=== PATIENT | male | born 1960 | race Caucasian/White ===

== ENCOUNTER 2022-03-08 20:15 | Emergency (ER) | payer OTHER, SELFPAY ==
[2022-03-08 20:42] VITALS: BP 135/78; PULSE 55; RESP 16; TEMP 36.4; O2SAT 99; BMI 25.8
--- NOTE | 2022-03-08 21:06 | CRLHL7_ITS ---
For Patients: As a result of the Cures Act, medical imaging exams and procedure reports are released immediately into your electronic medical record. You may view this report before your referring provider. If you have questions, please contact your health care provider. INDICATION: Fall. COMPARISON: None. TECHNIQUE: PA chest and right ribs, 3 images. FINDINGS: No focal consolidation, pleural effusion, or pneumothorax. Normal heart size and pulmonary vascularity. No displaced rib fracture identified. IMPRESSION: 1. No acute cardiopulmonary findings. 2. No displaced rib fracture identified. Dictated by Sarika Krishna MD @ 03/08/2022 11:39:15 PM (Electronically Signed)
--- NOTE | 2022-03-08 21:08 | ED_ITS ---
HPI - General Adult General Chief complaint: Rib Pain Stated complaint: fall, rib pain Time Seen by Provider: 03/08/22 20:56 History of Present Illness HPI narrative: This 61-year-old male comes in with an injury to his right ribs that occurred about 5 hours prior to arrival. He states that he fell onto his right elbow as it hit into the side of his ribs. He fell from a standing height or less and [place] so it was a soft landing. He has some discomfort in his right ribs but does not regarded as severe discomfort. He states that he heard a crack distinctly when he landed. He does not report any shortness of breath. Related Data Home Medications Medication Instructions Recorded Confirmed chlorthalidone 25 mg tablet 25 mg PO DAILY 03/08/22 03/08/22 lisinopril 40 mg tablet 40 mg PO DAILY 03/08/22 03/08/22 metoprolol succinate 25 mg 25 mg PO DAILY 03/08/22 03/08/22 tablet,extended release 24 hr potassium chloride 10 mEq 10 meq PO DAILY 03/08/22 03/08/22 tablet,extended release Previous Rx's Medication Instructions Recorded ketorolac 10 mg tablet 10 mg PO TID 5 Days #15 tab 03/08/22 Allergies Allergy/AdvReac Type Severity Reaction Status Date / Time No Known Drug Allergies Allergy Verified 03/08/22 20:44 Review of Systems Status of ROS: Reports: 10 or more systems reviewed and unremarkable except as noted in History and below Narrative: Constitutional: No fevers, no weight gain or loss. Eyes: No discharge. No vision changes. HENT: No congestion, no sore throat, no ear pain. Cardiovascular: No palpitations. Respiratory: No shortness of breath, no wheezes, no cough. Pain in the lateral right ribs. Gastrointestinal: No abdominal pain, no vomiting, no diarrhea. Genitourinary: No dysuria, no hematuria. Musculoskeletal: Normal range of motion. Skin: No rashes, no pruritis. Neurological: No dizziness, weakness, sensory change, speech change. Endo/Heme/Allergies: No bruising or bleeding. No polydipsia. Pysch: no suicidality, no anxiety, no insomnia. All other systems reviewed and are negative. Exam Narrative: Exam Narrative: Constitutional: Well-developed, well-nourished, no acute distress. HEENT: Normocephalic, atraumatic. Neck: Normal range of motion. Nontender. Supple. Heart: Regular. No murmurs. Normal rate. Intact distal pulses. Lungs: Clear to auscultation. No rhonchi, or rales. Mild to moderate tenderness diffusely in the right lateral ribs. He is able to move around without too much discomfort. Abdomen: Normal bowel sounds. Nontender. No rebound tenderness. Genitalia: Deferred. Back: No midline tenderness. Normal range of motion. Extremities: Normal range of motion. No injury. Skin: Intact. No rash. Warm. No erythema or pallor. Neurologic: No altered sensation. No weakness. Alert and oriented. Psychiatric: No suicidality. No anxiety or depression. No insomnia. Nursing notes and vitals signs are reviewed. Const: Vital Signs, click to edit/add: Vital Signs - 24 hr 03/08/22 20:42 Temperature 97.6 F Pulse Rate [Left P ulse Oximeter] 55 L Respiratory Rate 16 Blood Pressure [Ri ght Upper Arm] 135/78 Pulse Oximetry 99 Course Vital Signs Vital signs: Initial Vital Signs Temperature 97.6 F 03/08/22 20:42 Temperature Source Temporal Artery Scan 03/08/22 20:42 Pulse Rate 55 L 03/08/22 20:42 Respiratory Rate 16 03/08/22 20:42 Blood Pressure 135/78 03/08/22 20:42 Blood Pressure Mean 97 03/08/22 20:42 Blood Pressure Position Sitting 03/08/22 20:42 Pulse Oximetry 99 03/08/22 20:42 Oxygen Delivery Method 03/08/22 20:42 Vital Signs Temperature 97.6 F 03/08/22 20:42 Pulse Rate 55 L 03/08/22 20:42 Respiratory Rate 16 03/08/22 20:42 Blood Pressure 135/78 03/08/22 20:42 Pulse Oximetry 99 03/08/22 20:42 Temperature 97.6 F 03/08/22 20:42 Pulse Rate 55 L 03/08/22 20:42 Respiratory Rate 16 03/08/22 20:42 Blood Pressure 135/78 03/08/22 20:42 Pulse Oximetry 99 03/08/22 20:42 Medical Decision Making MDM Narrative Medical decision making narrative: This patient comes in with right rib injuries as described above. He heard a crack when he fell and wondered if he happened a crack a rib. He does not have much discomfort as of yet anyway. Additionally his lungs sound clear bilaterally. A rib x-ray and chest x-ray is ordered with results pending. I anticipate these will returned with no sign of pneumothorax. If there is a cracked rib the treatment is nevertheless the same. He did receive a rib belt and a prescription for Toradol. Discharge Plan Discharge Clinical Impression: Rib injury Patient Disposition: Home, Self-Care Condition: Stable Additional Instructions: Rib injury. Use medications as needed and directed. Wear rib belt also as needed. Follow up with MD or return if worsening. Prescriptions: New ketorolac 10 mg tablet 10 mg PO TID 5 Days Qty: 15 0RF No Action chlorthalidone 25 mg tablet 25 mg PO DAILY 0RF lisinopril 40 mg tablet 40 mg PO DAILY 0RF metoprolol succinate 25 mg tablet extended release 24 hr 25 mg PO DAILY 0RF potassium chloride 10 mEq tablet extended release 10 meq PO DAILY 0RF Follow Up/Referrals: Bryan Blackwell MD [Primary Care Provider] - Stand Alone Forms: [employer] Info Instructions
[2022-03-08 22:30] VITALS: BP 130/70; PULSE 61; RESP 14; TEMP 36.4; O2SAT 99
[2022-03-08 23:42] VITALS: BP 135/78; PULSE 55; RESP 14; TEMP 36.4
== END 2022-03-08 23:42 | disposition home or self-care (01) ==
LOC: ED 22:09
PROVIDERS: Emergency Provider Emergency Medicine Emergency Medical Services; PCP Surgery
DX: S29.9XXA Unspecified injury of thorax, initial encounter (principal); W19.XXXA Unspecified fall, initial encounter
CPT/HCPCS: 71101; 99283; 99284

== ENCOUNTER 2025-06-06 08:00 | Outpatient (CLI) | payer MEDICARE, BC, SELFPAY ==
--- NOTE | 2025-06-06 08:15 | MR_ITS ---
Patient: MIMI AYALA Facility:?[facility] Patient ID:?[id number] Site Patient ID:?[id number]. Site :?[id number] Study:?MRI-Head Angio W/O-06/06/2025 9:11:35 AM Ordering Physician:Valerio Brar Final Report: EXAMINATION: MRA HEAD WITHOUT CONTRAST DATE: 06/06/2025 HISTORY: Patient with known brain aneurysm. TECHNIQUE: 3D TOF MRA of the head was performed. COMPARISON: MRA 06/22/2018. 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 There are no new aneurysms. The rest of the intracranial vasculature is unremarkable. 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 A follow-up MRA of the head in July 2030, 25 years after treatment, will be obtained. Meet Fritz M.D. Neurointerventional Radiologist [facility] [place] Pager: Office/Referrals: [facility]: [email or web address] Dictated by: Meet Fritz MD @ 06/06/2025 16:03:01 (Electronic Signature)
== END 2025-06-06 08:01 | disposition home or self-care (01) ==
LOC: MRI 08:02
PROVIDERS: PCP Surgery; Visit Provider Radiology Neuroradiology
DX: I67.1 Cerebral aneurysm, nonruptured (principal)
CPT/HCPCS: 70544